=== PATIENT | male | born 1955 | race Caucasian/White ===

== ENCOUNTER 2022-09-26 08:43 | Emergency (ER) | payer OTHER, BC ==
--- OUTSIDE RECORDS SUMMARY | 2022-09-26 08:48 | XMS REPORT | Continuity of Care Document ---
:1955 Author Organization [facility] t Address [address] [facility]. [address] [place] [address] Care Team Providers Name Role Phone Mike MICHEL MD, Santy Primary Care Physician Cricket Attending Clinician Unavailable Finn Attending Clinician Unavailable Madelaine ADLER, Denis Attending Clinician Bianca MARROQUIN, Jose Antonio Beavers Attending Clinician [phone] Nishant ADLER, Mauro Cade Attending Clinician Sowmya Nuno PT Attending Clinician Unavailable Radu TEAGUE, Waqar Coelho Attending Clinician Unavailable Linda Attending Clinician Unavailable José Benoit Attending Clinician Cricket Admitting Clinician Unavailable Finn Admitting Clinician Unavailable Linda Admitting Clinician Unavailable Payers Payer Name Policy Type Policy Number Effective Date Expiration Date S [facility] [place] [id number] 2021 [place] 00:00:00 [place] [id number] 2021 [place] (MEDICARE 00:00:00 SUPPLEMENT) [facility] [id number] PL[place] OF [place] TRANSACT RX (MOVED [id number] 2021 HOLD) 00:00:00 [employer] (HMO) [id number] Problems Condition Condition Condition Status Onset Resolution Last Treating Co mments Source Name Details Category Date Date Treatment Clinician Date Hyperlipid Hyperlipid Problem Active [facility] emia emia 05-24 Family 00:00: Practic 00 e Vitiligo Vitiligo Problem Active [place] 1-31 Family 00:00: Practic 00 e OTHER OTHER Diagnosis Active 2018-07-09 Mem oria INTERVERTE INTERVERTE 4-24 07:54:00 l BRAL DISC BRAL DISC 00:00: Herm michealle DEGENERATI DEGENERATI 00 ON, ON, Active [facility] Erectile Erectile Problem Active [place] dysfunctio Dysfunctio 02-27 Fa vito n n 00:00: Practic 00 e Hypertensi Hypertensi Problem Active V illage ve ve 02-27 Family disorder Disorder 00:00: Practi c 00 e SCREENING SCREENING Diagnosis Active 2012-05-11 Memoria Active 04-12 08:49:00 l 04/12/2012 00:00: Wayne n 00 [place] Hypertensi Hypertens Problem Active 2021-02-05 Memoria on ion Active 03:16:55 l Problem Pella 02/05/2021 Santy Mckeon III SPINAL SPINAL Diagnosis Active 2018-07-09 Me moria STENOSIS, STENOSIS, 07:54:00 l LUMBAR LUMBAR [place] [facility] WITHOUT N WITHOUT N Active [facility] Screening Screening Problem Resolve 2018-07-11 Memoria colonoscop colonoscop d 21:49:56 l y y Bernardino (procedure (procedure ) ) Resolved Problem 07/11/2018 [facility] Screening Screening Problem Resolve 2012-05-13 Memoria colonoscop colonoscop d 09:06:52 l y y Resolved Wayne n Problem 05/13/2012 [facility] Erectile Erectile Problem Active 2021-02-05 Memoria dysfunctio dysfunctio 03:16:55 l n n Active [place] Problem 02/05/2021 Santy Mckeon III Vitiligo Vitiligo Problem Active 2021-02-05 Memoria Active 03:16:55 l Problem Pella 02/05/2021 Santy Mckeon III Allergies, Adverse Reactions, Alerts Allergy Allergy Status Severity Reaction(s) Onset Inactive Treating Comm ents Source Name Type Date Date Clinician Atorvast Atorvast Active Myalgias Yobany iam atin atin 8-06 l Calcium Calcium 00:00: Pella 00 Atorvast Allergy Active Myalgias [place] atin to (muscle Family substanc pain) Practic e e ATORVAST Allergy Active Myalgias [place] ATIN to (muscle Family CALCIUM substanc pain) Practic e e No Known No Known Active Memori a Medicati Medicati l on on Bernardino Toth s s Social History Social Habit Start Date Stop Date Quantity Comments Source Gender identity [facility] History of Social 2022-03-30 2022-03-[address] function 00:00:00 00:00:00 Hospital Tobacco use and 2022-01-12 2022-01-12 Smokeless Worship exposure 00:00:00 00:00:00 tobacco non-user Hospital Sex Ass[birth year] At [birth year] [facility] 00:00:00 00:00:00 Hospital Smoking Status Start Date Stop Date Source Never smoked tobacco [facility] Medications Ordered Filled Start Stop Current Ordering Indication Dosage Frequency Signature Comments Components Source Medication Medication Date Date Medication? Clinician (SIG) Name Name meloxicam 2022- No [id number] Prn pain. [facility] (Mobic) 03-[address] mg tablet 00:00: 05:59 with food Ho spita 00 :00 for 30 l days. meloxicam 2022- No [id number] Prn pain. [facility] (Mobic) 03-[address] mg tablet 00:00: 05:59 with food Ho spita 00 :00 for 30 l days. methocarbam 2022- No [id number] 750mg [id number] Take 1 [facility] oL 03-[id number] (ROBAXIN) 00:00: 05:59 3D (750 [facility] 750 MG 00 :00 total) by l tablet mouth 3 (three) times a day as needed for muscle spasms for up to 10 days. methocarbam 2022- No [id number] 750mg Q.[id number] Take 1 [facility] 03-[id number] (ROBAXIN) 00:00: 05:59 3D (750 mg [facility] 750 MG 00 :00 total) by l tablet mouth 3 (three) times a day as needed for muscle spasms for up to 10 days. Fluzone 2020-0 Yes PHARMACIST Rach helen Quad 11-[address] , 00:00: ED Hospita PF, 60 mcg 00 IMMUNIZATI l (15 mcg x ON 4)/0.5 mL ADMINISTER syringe ED AT TIME OF DISPENSING Fluzone 2020-0 Yes PHARMACIST Rach helen Quad 11-[address] , 00:00: ED Hospita PF, 60 mcg 00 IMMUNIZATI l (15 mcg x ON 4)/0.5 mL ADMINISTER syringe ED AT TIME OF DISPENSING Ibuprofen 2020-0 Yes Santy 1 tablet Me moria 9-12 Young with food l 02:00: or milk as Pella 45 needed Ibuprofen 2020-0 Yes Santy 1 tablet Me moria 9-12 Young with food l 02:00: or milk as Bernardino 45 needed Ibuprofen 2020-0 Yes Santy 1 tablet Me moria 9-12 Young with food l 02:00: or milk as Bernardino 45 needed Ibuprofen 2020-0 Yes Santy 1 tablet Me moria 9-12 Young with food l 02:00: or milk as P[place] 45 needed Ibuprofen 2020-0 Yes Santy 1 tablet Me moria 9-12 Young with food l 02:00: or milk as Bernardino 45 needed Tizanidine 2020-0 Yes Santy 1 tablet M emoria HCl 9-11 Young as needed l 00:00: Tizanidine 2020-0 Yes Santy 1 tablet M emoria HCl 9-11 Young as needed l 00:00: Tizanidine 2020-0 Yes Santy 1 tablet M emoria HCl 9-11 Young as needed l 00:00: Tizanidine 2020-0 Yes Santy 1 tablet M emoria HCl 9-11 Young as needed l 00:00: Tizanidine 2020-0 Yes Santy 1 tablet M emoria HCl 9-11 Young as needed l 00:00: lisinopril lisinopril No lisinopril [place] 20 mg 20 mg 20 mg Family tablet Take tablet Take tablet Practic 1 tablet by 1 tablet by Take 1 e mouth once mouth once tablet by daily daily mouth once daily sildenafil sildenafil No sildenafil [facility] 100 mg 100 mg 100 mg Family tablet TAKE tablet TAKE tablet Practic 1 TABLET BY 1 TABLET BY TAKE 1 e MOUTH 30 MOUTH 30 TABLET BY MINUTES MINUTES MOUTH 30 PRIOR TO PRIOR TO MINUTES SEXUAL SEXUAL PRIOR TO ACTIVITY ACTIVITY SEXUAL ACTIVITY lisinopril lisinopril No lisinopril [facility] 20 mg 20 mg 20 mg Family tablet TAKE tablet TAKE tablet Practic 1 TABLET BY 1 TABLET BY TAKE 1 e MOUTH ONCE MOUTH ONCE TABLET BY DAILY FOR DAILY FOR MOUTH ONCE 90 DAYS 90 DAYS DAILY FOR 90 DAYS sildenafil sildenafil No sildenafil [facility] 100 mg 100 mg 100 mg Family tablet TAKE tablet TAKE tablet Practic 1 TABLET BY 1 TABLET BY TAKE 1 e MOUTH 30 MOUTH 30 TABLET BY MINUTES MINUTES MOUTH 30 PRIOR TO PRIOR TO MINUTES SEXUAL SEXUAL PRIOR TO ACTIVITY ACTIVITY SEXUAL ACTIVITY Immunizations Ordered Immunization Filled Immunization Date Status Commen ts Source Name Name zoster recombinant zoster recombinant 2022-05-23 Completed [facility] 16:21:00 Practice Pneumococcal Pneumococcal 2022-05-23 Completed [facility] conjugate PCV20, conjugate PCV20, 16:21:00 Pr actice polysaccharide [id number] polysaccharide [id number] conjugate, adjuvant, conjugate, adjuvant, PF PF zoster recombinant zoster recombinant 2022-01-26 Completed [facility] 00:00:00 Practice influenza, influenza, 2022-01-26 Completed [facility] unspecified unspecified 00:00:00 Practice formulation formulation COVID-19, mRNA, COVID-19, mRNA, 2021-01-27 Completed [facility] LNP-S, PF, 100 LNP-S, PF, 100 00:00:00 Practi ce mcg/0.5 mL dose mcg/0.5 mL dose (Moderna) (Moderna) COVID-19, mRNA, COVID-19, mRNA, 2021-01-27 Completed [facility] Family LNP-S, PF, 100 LNP-S, PF, 100 00:00:00 Practi ce mcg/0.5 mL dose mcg/0.5 mL dose (Moderna) (Moderna) COVID-19, mRNA, COVID-19, mRNA, 2020-04-15 Completed [facility] Family LNP-S, PF, 100 LNP-S, PF, 100 00:00:00 Practi ce mcg/0.5 mL dose mcg/0.5 mL dose (Moderna) (Moderna) COVID-19, mRNA, COVID-19, mRNA, 2020-04-15 Completed [facility] Family LNP-S, PF, 100 LNP-S, PF, 100 00:00:00 Practi ce mcg/0.5 mL dose mcg/0.5 mL dose (Moderna) (Moderna) influenza, influenza, 2019-11-26 Completed [facility] injectable, injectable, 00:00:00 Practice quadrivalent, quadrivalent, preservative free preservative free influenza, influenza, 2019-11-26 Completed [facility] injectable, injectable, 00:00:00 Practice quadrivalent, quadrivalent, preservative free preservative free Fluzone Quadrivalent 2019-11-26 Completed Yobany rial 00:00:00 [place] Fluzone Quadrivalent 2019-11-26 Completed Yobany rial 00:00:00 [place] Fluzone Quadrivalent 2019-11-26 Completed Yobany rial 00:00:00 [place] Fluzone Quadrivalent 2019-11-26 Completed Yobany rial 00:00:00 [place] Fluzone Quadrivalent 2019-11-26 Completed Yobany rial 00:00:00 [place] influenza, influenza, 2015-11-23 Completed [facility] injectable, injectable, 00:00:00 Practice quadrivalent quadrivalent Tdap Tdap 2015-11-23 Completed [facility] 00:00:00 Practice influenza, influenza, 2015-11-23 Completed [facility] injectable, injectable, 00:00:00 Practice quadrivalent quadrivalent Tdap Tdap 2015-11-23 Completed [facility] 00:00:00 Practice Tdap Tdap 2013-02-27 Completed [facility] 00:00:00 Practice Tdap Tdap 2013-02-27 Completed [facility] 00:00:00 Practice influenza, seasonal, influenza, seasonal, 2011-12-23 Completed [facility] injectable injectable 00:00:00 Practice influenza, seasonal, influenza, seasonal, 2011-12-23 Completed [facility] injectable injectable 00:00:00 Practice Vital Signs Vital Name Observation Time Observation Value Comments Source BP Diastolic 2022-05-23 00:00:00 79 mm[Hg] [facility] Practice Height 2022-05-23 00:00:00 71 [in_i] [facility] BMI (Body Mass 2022-05-23 00:00:00 31.5 kg/m2 [facility] e Family Index) Practice BP Systolic 2022-05-23 00:00:00 135 mm[Hg] [facility] Body Weight 2022-05-23 00:00:00 226 [lb_av] [facility] BP Diastolic 2021-05-18 00:00:00 83 mm[Hg] [facility] Height 2021-05-18 00:00:00 71 [in_i] [facility] BMI (Body Mass 2021-05-18 00:00:00 31.4 kg/m2 [facility] Practice BP Systolic 2021-05-18 00:00:00 145 mm[Hg] [facility] Body Weight 2021-05-18 00:00:00 224.8 [lb_av] [facility] Body height 2022-03-30 21:00:00 182.9 cm [facility] Body weight 2022-03-30 21:00:00 95.255 kg [facility] BMI 2022-03-30 21:00:00 28.48 kg/m2 [facility] Weight 2012-05-11 13:56:00 [facility] Height 2012-05-11 13:56:00 182.88 cm [facility] Procedures Procedure Date / Time Performing Clinician Source Performed XR LUMBAR SPINE COMPLETE 2022-03-30 21:07:20 Denis Burkett [facility] 4+ VW ME ARTHROCENTESIS 2022-01-12 19:30:00 Jose Antonio Valenzuela [facility] ASPIR&/INJ MAJOR JT/BURSA W/O US XR KNEE 4+ VW LEFT 2022-01-12 19:24:00 Jose Antonio Valenzuela [facility] Colonoscopy 2012-05-11 05:00:00 [facility] Colonoscopy 2012-05-11 05:00:00 [facility] Repair of umbilical [facility]<sup>[facility]</sup> LASIK [facility] Repair of umbilical [facility] hernia Teeth operation [facility] <sup>1</sup> Plan of Care Planned Activity Planned Date Details Comments Source Future Scheduled Test 2022-08-27 Screening for [facility] 22:44:31 malignant neoplasm of colon (procedure) [code = 207235888] Future Scheduled Test 2022-08-27 Screening for [facility] 22:44:31 malignant neoplasm of colon (procedure) [code = 621967153] Future Scheduled Test 2022-08-27 Hepatitis C screening [facility] 22:44:31 (procedure) [code = 139401920] Future Scheduled Test 2022-08-27 Screening for [facility] 22:44:31 malignant neoplasm of colon (procedure) [code = 255258308] Future Scheduled Test 2022-08-27 SHINGLES VACCINES (1 [facility] 22:44:31 of 2) [code = SHINGLES VACCINES (1 of 2)] Future Scheduled Test 2022-08-27 COVID-19 VACCINE ([address] [place] [address] 22:44:31 Moderna series) [code = COVID-19 VACCINE (5 - Moderna series)] Future Scheduled Test 2022-08-27 65+ PNEUMOCOCCAL [facility] 22:44:31 VACCINE (1 - PCV) [code = 65+ PNEUMOCOCCAL VACCINE (1 - PCV)] Future Scheduled Test 2022-08-27 INFLUENZA VACCINE [facility] 22:44:31 [code = INFLUENZA VACCINE] Future Scheduled Test 2022-08-27 Screening for [facility] 22:44:31 malignant neoplasm of colon (procedure) [code = 356854665] Future Scheduled Test 2022-08-27 Screening for [facility] 22:44:31 malignant neoplasm of colon (procedure) [code = 168938303] Future Scheduled Test 2022-05-29 Hepatitis C screening [facility] 13:25:51 (procedure) [code = 864659138] Future Scheduled Test 2022-05-29 COLONOSCOPY SCREENING [facility] 13:25:51 [code = COLONOSCOPY SCREENING] Future Scheduled Test 2022-05-29 SHINGLES VACCINES (1 [facility] 13:25:51 of 2) [code = SHINGLES VACCINES (1 of 2)] Future Scheduled Test 2022-05-29 COVID-19 VACCINE ( - [facility] 13:25:51 Booster) [code = COVID-19 VACCINE (5 - Booster)] Future Scheduled Test 2022-05-29 65+ PNEUMOCOCCAL [facility] 13:25:51 VACCINE (1 - PCV) [code = 65+ PNEUMOCOCCAL VACCINE (1 - PCV)] Future Scheduled Test 2022-05-29 INFLUENZA VACCINE [facility] 13:25:51 [code = INFLUENZA VACCINE] Diagnostic Test 2022-05-23 PSA, serum or plasma [facility] Family Pending 00:00:00 [code = PSA, serum or Practi ce plasma] Diagnostic Test 2022-05-23 CMP, serum or plasma Vill age Family Pending 00:00:00 [code = CMP, serum or Practi ce plasma] Diagnostic Test 2022-05-23 CBC w/ auto diff [facility] Family Pending 00:00:00 [code = CBC w/ auto Practice diff] Diagnostic Test 2022-05-23 TSH, serum or plasma Vill age Family Pending 00:00:00 [code = TSH, serum or Practi ce plasma] Diagnostic Test 2022-05-23 lipid panel, serum Villag e Family Pending 00:00:00 [code = lipid panel, Practic e serum] Diagnostic Test 2022-05-23 urinalysis complete, Vill age Family Pending 00:00:00 reflex culture [code Practic e = urinalysis complete, reflex culture] Future Appointment 2022-11-23 Linnea Garcia, [address] Family 07:30:00 Pradeep Haley; [address] [address] Encounters Start End Encounter Admission Attending Care Care Encounter Source Date/Time Date/Time Type Type Clinicians Facility Department ID 2022-05-23 2022-05-23 [facility] [id number] [facility] 00:00:00 00:00:00 0327 Family Practic e 2022-05-23 2022-05-23 Linnea Aragon [facility] [place] - [id number] [facility] 00:00:00 00:00:00 JoseGerry poole MD: [address]ic Pradeep Manning, [address] [place] [phone] , Ph. 2022-05-20 2022-05-20 Outpatient Efrain_Harshal [facility] [id number] [facility] 00:00:00 00:00:00 0324 Family Practic e 2022-05-20 2022-05-20 Outpatient VFP VF [id number] [facility] 00:00:00 00:00:00 0406 Family Practic e 2022-05-20 2022-05-20 Outpatient Kovacs_J VFP [facility] [id number] [facility] 00:00:00 00:00:00 0426 Family Practic e 2022-03-30 2022-03-30 Office Burkett, 1.2.840.1 [id number] [facility] 15:15:00 15:30:[address] Hos[address]134[address]1.[address] 3.430.2.7 Hospit a .3.462960 l .8 2022-03-30 2022-03-30 Office Burkett, 1.2.840.1 [id number] [facility] 15:15:00 15:30:00 Visit Hosun [address]11.1.[address] 3.430.2.7 Hospit a .3.578849 l .8 2022-03-30 2022-03-30 Travel 1.2.840.1 1.2.638.792 [id number] [id number] [facility] 00:00:00 00:00:[address] 3.430.2.7 0.2.7.3.698 Ho spita .3.163840 084.8 l .8 2022-03-30 2022-03-30 Travel 1.2.840.1 1.2.216.846 9455 [id number] [facility] 00:00:00 00:00:[address] 3.430.2.7 0.2.7.3.698 Ho spita .3.310038 084.8 l .8 2022-03-30 2022-03-30 [facility] [id number] [place] 00:00:00 00:00:00 HOSUN [address] 2022-01-26 2022-01-26 Evaluation Jose Antonio Valenzuela 1.2.840.1 [id number] [facility] 11:00:00 12:00:00 Mauro D[address]27.1.[address] Sowmya Nuno 3.430.2.7 Hos ayesha .3.937896 l .8 2022-01-26 2022-01-26 Evaluation Jose Antonio Valenzuela 1.2.840.1 [id number] [facility] 11:00:00 12:00:00 Mauro Dillard [address] Nurys, Sowmya 3.430.2.7 Hos ayesha .3.720698 l .8 2022-01-26 2022-01-26 Travel 1.2.840.1 1.2.507.159 7328 [id number] [facility] 00:00:00 00:00:[address] 3.430.2.7 0.2.7.3.698 Ho spita .3.357389 084.8 l .8 2022-01-26 2022-01-26 Travel 1.2.840.1 1.2.741.668 0344 [id number] [facility] 00:00:00 00:00:[address] 3.430.2.7 0.2.7.3.698 Ho spita .3.965417 084.8 l .8 2022-01-12 2022-01-17 Office Fertak, 1.2.840.1 [id number] [facility] 13:30:00 16:17:59 Visit Jose Antonio 63918.1.[address] [place] 3.430.2.7 Hospit a .3.194269 l .8 2022-01-12 2022-01-17 Office Fertak, 1.2.840.1 [id number] [facility] 13:30:00 16:17:59 Visit Jose Antonio 48385.1.[address] [place] 3.430.2.7 Hospit a .3.347606 l .8 2022-01-12 2022-01-12 Outpatient BIANCA, [facility] [id number] [place] 00:00:00 00:00:00 JOSE ANTONIO [address] 2022-01-11 2022-01-11 Orders Lovelace, 1.2.840.1 [id number] [facility] 00:00:00 00:00:00 Only Daygonzalez Coelho 93486.1.[address] 3.430.2.7 Hospit a .3.354914 l .8 2022-01-11 2022-01-11 Travel 1.2.840.1 1.2.587.186 7155 [id number] Method[facility] 00:00:00 00:00:[address] 3.430.2.7 0.2.7.3.698 Ho spita .3.160879 084.8 l .8 2022-01-11 2022-01-11 Orders Lovelace, 1.2.840.1 [id number] Methodi 00:00:00 00:00:00 Only Dayaichana A 70542.1.[address] 3.430.2.7 Hospit a .3.361062 l .8 2022-01-11 2022-01-11 Travel 1.2.840.1 1.2.777.221 1495 [id number] Methodi 00:00:00 00:00:[address] 3.430.2.7 0.2.7.3.698 Ho spita .3.537404 084.8 l .8 2021-10-13 2021-10-13 Outpatient Davis_M VFP VFP [id number] [facility] 00:00:00 00:00:00 0817 Family Practic e 2021-08-16 2021-08-16 Outpatient Davis_M VFP VFP [id number] 022 [facility] 12:54:00 12:54:00 0620 Family Practic e 2021-06-16 2021-06-16 Outpatient Young_D VFP VFP [id number] 022 [facility] 03:14:00 03:14:00 0420 Family Practic e 2021-06-04 2021-06-04 Outpatient Young_D VFP VFP [id number] 022 [facility] 03:00:00 03:00:00 0408 Family Practic e 2021-06-03 2021-06-03 Outpatient Young_D VFP VFP [id number] [facility] 06:34:00 06:34:00 0407 Family Practic e 2021-06-02 2021-06-02 Outpatient Young_D VFP VFP [id number] 022 [facility] 12:12:00 12:12:00 0406 Family Practic e 2021-06-02 2021-06-02 Linnea Aragon VFP [place] - [id number] [facility] 00:00:00 00:00:00 Gerry Garcia Family MD: [address] Fernández VM_HOU_Heig e , Malik. [address] [phone] , Ph. 2021-05-27 2021-05-27 Outpatient Young_D VFP VFP [id number] 022 [facility] 04:57:00 04:57:00 0331 Family Practic e 2021-05-27 2021-05-27 Linnea Aragon VFP [place] - [id number] [facility] 00:00:00 00:00:00 Gerry Garcia MD: [address] Fernández VM_HOU_Hebeverley e , Malik. [address] [phone] , Ph. 2021-05-19 2021-05-19 Outpatient Young_D VFP VFP [id number] [facility] 03:56:00 03:56:00 0323 Family Practic e 2021-05-18 2021-05-18 Outpatient Young_D VFP VFP [id number] [facility] 02:02:00 02:02:00 0322 Family Practic e 2021-05-18 2021-05-18 Linnea Aragon VFP [place] - [id number] [facility] 00:00:00 00:00:00 Gerry Garcia MD: [address] Fernández VM_HOU_Heig e , Malik. [address] [phone] , Ph. 2021-03-29 2021-03-29 Outpatient Young_D VFP VFP [id number] 022 [facility] 08:29:00 08:29:00 0131 Family Practic e 2021-03-29 2021-03-29 Outpatient Young_D VFP VFP [id number] [facility] 08:29:00 08:29:00 0317 Family Practic e 2019-11-27 2019-11-27 Outpatient MADELAINE [facility] [id number] [place] 00:00:00 00:00:00 HOSUN [address] 2019-11-27 2019-11-27 Outpatient MADELAINE [facility] [id number] [place] 00:00:00 00:00:[address] HOSUN [address] 2019-11-26 2019-11-26 Outpatient Santy Madera C [id number] [facility] 16:21:00 16:21:00 Young III Young III wendy Greene MD, MD 2019 2019 Outpatient Santy Madera C [id number] [facility]Clinic 10:34:00 10:34:00 Young III Young III wendy Greene MD, MD 2019-11-08 2019-11-08 Outpatient Santy Madera C [id number] [facility]inic 14:12:00 14:12:00 Young III Young III wendy Greene MD, MD 2019-11-08 2019-11-08 Outpatient Santy Madera C [id number] [facility]inic 14:04:00 14:04:00 Young III Young III wendy Greene MD, MD 2019-10-03 2019-10-03 Outpatient Santy Madera C [id number] [facility]inic 14:16:00 14:16:00 Young III Young III wendy Greene MD, MD 2018-07-09 2018-07-10 Outpatient nullFlavo [facility] 3747 [id number] Memoria 12:45:00 04:59:00 r Bernardino 01 l [facility] 2018-07-09 2018-07-10 Outpatient nullFlavo [facility] [id number] Memoria 12:45:00 04:59:00 r Bernardino 01 l [facility] 2018-07-09 2018-07-09 Outpatient [facility] [id number] 07:45:00 23:59:00 José 01 Basim 2018-07-09 2018-07-09 Outpatient [facility] 7501 [facility] 07:45:00 07:45:00 2012-05-11 2012-05-11 RIVERA nullFlavo [facility] [id number] Memoria 08:36:00 11:41:00 r Rayo 00 marichuy Lebron 2012-05-11 2012-05-11 RIVERA nullFlavo [facility] [id number] Memoria 08:36:00 11:41:00 [facility] 00 l Pella Results Test Description Test Time Test Comments Results Result Comments Source urinalysis, microscopic 2022-05-24 07:11:00 Test Item Value Reference Range Interpretation Comme nts WBC (test code = WBC) none seen 0-5 RBC (test code = RBC) none seen 0-2 epithelial cells (non renal) (test code = epithelial none seen 0 -10 cells (non renal)) epithelial cells (renal) (test code = epithelial cells comment (renal)) casts (test code = casts) none seen none seen cast type (test code = cast type) comment crystals (test code = crystals) comment crystal type (test code = crystal type) comment mucus threads (test code = mucus threads) comment bacteria (test code = bacteria) none seen none seen/few yeast (test code = yeast) comment trichomonas (test code = trichomonas) comment comment (test code = comment) comment [facility] - Urine 2022-05-24 00:00:00 Test Item Value Reference Range Interpretation Comments specific gravity (test code = 1.010 1.005-1.030 specific gravity) pH (test code = pH) 7.0 5.0-7.5 urine-color (test code = yellow yellow urine-color) appearance (test code = appearance) clear clear WBC esterase (test code = WBC negative negative esterase) protein (test code = protein) negative negative/trace glucose (test code = glucose) negative negative ketones (test code = ketones) negative negative occult blood (test code = occult negative negative blood) bilirubin (test code = bilirubin) negative negative urobilinogen,semi-qn (test code = 0.2 mg/dL 0.2-1.0 urobilinogen,semi-qn) nitrite, urine (test code = negative negative nitrite, urine) microscopic examination (test code = microscopic examination) urinalysis reflex (test code = comment urinalysis reflex) [facility] W Auto Differential panel - [id number] 00:00:00 Test Item Value Reference Range Interpretation Comments WBC (test code = WBC) 4.32 x10*3/?L 4.00-11.00 RBC (test code = RBC) 4.51 10*12/L 4.63-6.08 L hemoglobin (test code = 14.30 g/dL 13.70-17.50 hemoglobin) hematocrit (test code = 44.3 % 40.1-51.0 hematocrit) MCV (test code = MCV) 98.2 fL 80.0-100.0 MCH (test code = MCH) 31.7 pg 25.7-32.2 MCHC (test code = MCHC) 32.3 g/dL 32.3-36.5 RDW-SD (test code = RDW-SD) 44.7 fL 35.1-43.9 H platelet count (test code = 179.0 k/uL 150.0-400.0 platelet count) MPV (test code = MPV) 9.7 fL 7.5-11.5 neut% (test code = neut%) 64.9 % 34.0-67.9 lymph% (test code = lymph%) 23.8 % 21.8-53.1 mon% (test code = mon%) 9.7 % 5.3-12.2 eos% (test code = eos%) 0.7 % 0.8-7.0 L baso% (test code = baso%) 0.7 % 0.2-1.2 neut# (test code = neut#) 2.8 x10*3/?L 1.8-5.4 lymph# (test code = lymph#) 1.0 x10*3/?L 1.3-3.6 L mon# (test code = mon#) 0.4 x10*3/?L 0.3-0.8 eos# (test code = eos#) 0.03 x10*3/?L 0.04-0.54 L baso# (test code = baso#) 0.03 x10*3/?L 0.01-0.08 [facility] - Serum or [id number] 00:00:00 Test Item Value Reference Range Interpretation Comments HDL (test code = HDL) 63 mg/dL triglyceride (test code = 91 mg/dL <150 triglyceride) VLDL (calculated) (test code = VLDL 18 mg/dL (calculated)) cholesterol/HDL ratio (test code = 3.8 mg/dL cholesterol/HDL ratio) non-HDL cholesterol (calculated) 174 mg/dL <160 H (test code = non-HDL cholesterol (calculated)) cholesterol (test code = 237 mg/dL <200 H cholesterol) Cholesterol in LDL [Mass/volume] in 156 mg/dL <130 H Serum or Plasma (test code = 2089-1) [facility] or [id number] 00:00:00 Test Item Value Reference Range Interpretation Comments PSA, total (test code = PSA, 1.49 NG/mL <4.00 total) [facility] [Units/volume] in Serum or [id number] 00:00:00 Test Item Value Reference Range Interpretation Comments TSH (test code = TSH) 2.011 uIU/mL 0.350-4.940 [facility] 1999 panel - Serum or Plasma 2022-05-23 00:00:00 Test Item Value Reference Range Interpretation Comments ALT (test code = ALT) 19 U/L 0-55 AST (test code = AST) 18 U/L 5-34 BUN (test code = BUN) 17.3 mg/dL 8.4-25.0 alk phos (test code = alk phos) 49 unit/L 40-150 glucose (test code = glucose) 96 mg/dL 70-99 albumin (test code = albumin) 4.1 g/dL 3.4-5.1 creatinine (test code = 0.94 mg/dL 0.72-1.25 creatinine) eGFR (test code = eGFR) >60 total bilirubin (test code = 1.4 mg/dL 0.2-1.2 H total bilirubin) sodium (test code = sodium) 142 mEq/L 135-145 potassium (test code = potassium) 4.8 mEq/L 3.5-5.3 chloride (test code = chloride) 106 mmol/L 98-110 total protein (test code = total 6.9 g/dL 6.1-8.2 protein) calcium (test code = calcium) 9.3 mg/dL 8.8-10.2 CO2 (test code = CO2) 28.9 mmol/L 20.0-32.0 anion gap (test code = anion gap) 7 calc [facility] panel - Serum or Plasma 2021-05-28 00:00:00 Test Item Value Reference Range Interpretation Comments ALT (test code = ALT) 23 U/L 0-55 AST (test code = AST) 19 U/L 5-34 BUN (test code = BUN) 20.0 mg/dL 8.4-25.0 alk phos (test code = alk phos) 59 unit/L 40-150 glucose (test code = glucose) 96 mg/dL 70-99 albumin (test code = albumin) 4.2 g/dL 3.4-5.1 creatinine (test code = 0.88 mg/dL 0.72-1.25 creatinine) eGFR non- (test >60 code = eGFR non-) total bilirubin (test code = 1.7 mg/dL 0.2-1.2 H total bilirubin) eGFR - (test >60 code = eGFR - ) sodium (test code = sodium) 141 mEq/L 135-145 potassium (test code = potassium) 4.5 mEq/L 3.5-5.3 chloride (test code = chloride) 104 mmol/L 98-110 total protein (test code = total 7.0 g/dL 6.1-8.2 protein) calcium (test code = calcium) 9.1 mg/dL 8.8-10.2 CO2 (test code = CO2) 27.6 mmol/L 20.0-32.0 anion gap (test code = anion gap) 9 calc [facility] panel - Serum or [id number] 00:00:00 Test Item Value Reference Range Interpretation Comments HDL (test code = HDL) 55 mg/dL triglyceride (test code = 106 mg/dL <150 triglyceride) VLDL (calculated) (test code = VLDL 21 mg/dL (calculated)) cholesterol/HDL ratio (test code = 4.1 mg/dL cholesterol/HDL ratio) non-HDL cholesterol (calculated) 171 mg/dL <160 H (test code = non-HDL cholesterol (calculated)) cholesterol (test code = 226 mg/dL <200 H cholesterol) Cholesterol in LDL [Mass/volume] in 150 mg/dL <130 H Serum or Plasma (test code = 2089-1) [facility] [Units/volume] in Serum or [id number] 00:00:00 Test Item Value Reference Range Interpretation Comments TSH (test code = TSH) 2.383 uIU/mL 0.350-4.940 [facility], serum or [id number] 00:00:00 Test Item Value Reference Range Interpretation Comments PSA, total (test code = PSA, 1.47 NG/mL <4.00 total) [facility] [Mass/volume] in Serum or [id number] 00:00:00 Test Item Value Reference Range Interpretation Comments testosterone, total (test code = 782.81 NG/dL 220.91-715.81 H testosterone, total) [facility] Auto Differential panel - [id number] 00:00:00 Test Item Value Reference Range Interpretation Comments WBC (test code = WBC) 4.49 x10*3/?L 4.00-11.00 RBC (test code = RBC) 4.75 10*12/L 4.63-6.08 hemoglobin (test code = 14.90 g/dL 13.70-17.50 hemoglobin) hematocrit (test code = 46.6 % 40.1-51.0 hematocrit) MCV (test code = MCV) 98.1 fL 80.0-100.0 MCH (test code = MCH) 31.4 pg 25.7-32.2 MCHC (test code = MCHC) 32.0 g/dL 32.3-36.5 L RDW-SD (test code = RDW-SD) 43.8 fL 35.1-43.9 platelet count (test code = 200.0 k/uL 150.0-400.0 platelet count) MPV (test code = MPV) 9.9 fL 7.5-11.5 neut% (test code = neut%) 61.9 % 34.0-67.9 lymph% (test code = lymph%) 26.3 % 21.8-53.1 mon% (test code = mon%) 10.0 % 5.3-12.2 eos% (test code = eos%) 0.7 % 0.8-7.0 L baso% (test code = baso%) 0.7 % 0.2-1.2 neut# (test code = neut#) 2.8 x10*3/?L 1.8-5.4 lymph# (test code = lymph#) 1.2 x10*3/?L 1.3-3.6 L mon# (test code = mon#) 0.5 x10*3/?L 0.3-0.8 eos# (test code = eos#) 0.03 x10*3/?L 0.04-0.54 L baso# (test code = baso#) 0.03 x10*3/?L 0.01-0.08 [facility] A1c/Hemoglobin.total in [id number] 00:00:00 Test Item Value Reference Range Interpretation Comments Hemoglobin A1c/Hemoglobin.total in 5.5 % 1.0-5.7 Blood (test code = 4548-4) average blood glucose (calculation) 111 mg/dL (test code = average blood glucose (calculation)) [facility] Notes Date/Time Note Provider Source 2018-07-09 07:52:00-00:00 Patient Name: GERSON GOMEZ [facility] : 1955; Age: 62 years Male MR: [id number] Study: Spine lumbar wo contrast MRI 07/09/2018 7: 52 AM CDT Clinical Indication: M51.36 Other intervertebral disc degeneration, lumbar region, - M51.36 Other intervertebral disc degeneration, lumbar region, M48.061 Spinal stenosis, lumbar region without neurogenic claudication. COMPARISON: None TECHNIQUE: Multiplanar T1, T 2, STIR weighted noncontrast MRI of the lumbar spine is performed on the 1.5 Lulu magnet. FINDINGS: ALIGNMENT AND GENERAL ASSESS MENT: Vertebral body heights are maintained. There is no acute compression fracture evident. There is a Schmorl's node along the inferior endplate of L4 with surroun ding edema. Question acute o r recent Schmorl's node. There are mild disc degenerative changes at L2-L3, L3-L4 L4-L5 and L5-S1. The paraspinous soft tissues appear unremarkable. The conus termin ates at L1. Bone marrow signal changes are unrem arkable for age. DISC SPACES: T12-L1: The disc is normal. There is no central canal stenosis. There is no foraminal stenosis. The facet joints are normal. L1-L2: The disc is normal. T here is no central canal stenosis. There is no foraminal stenosis. The facet joints are normal. L2-L3: Mild diffuse disc bul ge. No spinal canal stenosis. Mild bilateral foraminal narrowing. The facet joints are unremarkable. L3-L4: Mild disc desiccation without significant disc bulge or protrusion. No spinal canal stenosis. Mild bilateral foraminal narrowing. Facet joints are unremarkable. L4-L5: Mild posterior disc b ulge. No spinal canal stenosis. Mild bilateral foraminal narrowing. Facet joints are unremarkable. L5-S1: Mild posterior disc b ulge with central annular fissure. No spinal canal stenosis. Mild bilateral foraminal narrowing. Facet joints are unremarkable. IMPRESSION: 1. No spinal canal stenosis. 2. Mild bilateral foraminal narrowing spanning L 2-L3 through L5-S1. 3. Acute or recent Schmorl's node along the inferior endplate of L4. Correlate for point tenderness. SL: DONITA
[2022-09-26] MEDS ORDERED: LIDOCAINE 1% MPF 5 ML VIAL ONE (09:01)
--- NOTE | 2022-09-26 09:01 | ER ---
Nurse's Notes [facility] Name: Judd Vega Age: 66 yrs Sex: Male : 1955 Arrival Date: 09/26/2022 Time: 08:43 Bed 15 Private MD: Diagnosis: Puncture wound with foreign body of left forearm, initial encounter Presentation: 09/26 08:56 Chief complaint: Patient states: he was fishing and got a hook in his left forearm. ko1 Coronavirus screen: At this time, the client does not indicate any symptoms associated with coronavirus-19. Ebola Screen: No symptoms or risks identified at this time. Initial Sepsis Screen: Does the patient meet any 2 criteria? No. Patient's initial sepsis screen is negative. Does the patient have a suspected source of infection? No. Patient's initial sepsis screen is negative. Risk Assessment: Do you want to hurt yourself or someone else? Patient reports no desire to harm self or others. Onset of symptoms was September 26, 2022. 08:56 Method Of Arrival: Ambulatory ko1 08:56 Acuity: IRIS 4 ko1 Triage Assessment: 09:05 General: Appears in no apparent distress. comfortable, Behavior is calm, cooperative, ko1 appropriate for age. Pain: Complains of pain in dorsal aspect of left forearm. EENT: No deficits noted. Neuro: No deficits noted. Cardiovascular: No deficits noted. Respiratory: No deficits noted. GI: No deficits noted. : No deficits noted. Derm: No deficits noted. Musculoskeletal: No deficits noted. Injury Description: Foreign body is located dorsal aspect of left forearm is fish hook. Historical: - Allergies: 09:05 No Known Allergies; ko1 - Immunization history:: Adult Immunizations unknown. - Social history:: Smoking status: Patient denies any tobacco usage or history of. Screenin:07 [facility] ED Fall Risk Assessment (Adult) History of falling in the last 3 months, ko1 including since admission No falls in past 3 months (0 pts) Confusion or Disorientation No (0 pts) Intoxicated or Sedated No (0 pts) Impaired Gait No (0 pts) Mobility Assist Device Used No (0 pt) Altered Elimination No (0 pt) Score/Fall Risk Level 0 - 2 = Low Risk Oriented to surroundings, Maintained a safe environment, Educated pt \T\ family on fall prevention, incl call for assistance when getting out of bed, Assessed \T\ reinforced patient's understanding of fall precautions. Abuse screen: Denies threats or abuse. Denies injuries from another. Nutritional screening: No deficits noted. Tuberculosis screening: No symptoms or risk factors identified. Assessment: 09:07 Reassessment: see triage. ko1 Vital Signs: 09:05 BP 134 / 86; Pulse 74; Resp 16; Temp 98; Pulse Ox 99% ; ko1 ED Course: 08:45 Patient arrived in ED. kb 08:45 Marlen Stout FNP-C is PHCP. kb 08:45 Rodolfo Victor MD is Attending Physician. kb 08:50 Chio Beck, HO is Primary Nurse. ko1 08:50 Keyur Gilbert MD is Attending Physician. rt 08:50 Arm band placed on right wrist. Patient placed in an exam room, on a stretcher, Patient ko1 notified of wait time. 08:57 Triage completed. ko1 09:07 Patient has correct armband on for positive identification. Bed in low position. Call ko1 light in reach. Provided Education on: tetanus injection. 09:07 Assist provider with foreign body removal of a fish hook from left arm using hemostats, ko1 Set up for procedure. Performed by Marlen JETT Dressed with bandaid Patient tolerated well. Patient did not have IV access during this emergency room visit. 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 ko1 Exp: 03/16/2023. Lot #: [id number]. } Route: IM; Site: left deltoid; Medication: 09:07 Vaccine Information Statement (VIS) provided today. Questions and/or concerns ko1 addressed. VIS edition date: September 26, 2022. Outcome: 09:00 Discharge ordered by . kb 09:07 Discharged to home ambulatory. ko1 09:07 Condition: good 09:07 Discharge instructions given to patient, Instructed on discharge instructions, follow up and referral plans. medication usage, wound care, Demonstrated understanding of instructions, follow-up care, medications, wound care, Prescriptions given X 1. 09:09 Patient left the ED. ko1 Signatures: Marlen Stout FNP-C FNP-Chio Pascual RN RN ko1 Keyur Gilbert MD MD rt
--- NOTE | 2022-09-26 09:01 | EDPHYS ---
Physician Documentation [facility] Name: Judd Vega Age: 66 yrs Sex: Male : 1955 Arrival Date: 09/26/2022 Time: 08:43 Bed 15 Private MD: ED Physician Keyur Gilbert HPI: 09/26 08:46 This 66 yrs old Male presents to ER via Unassigned with complaints of fishhook in left kb FA. 08:46 The patient or guardian reports the patient has a suspected foreign body, of the left kb FA. The reported likely foreign body is a fishhook. Onset: The symptoms/episode began/occurred 30 minute(s) ago. Current symptoms: foreign body sensation. Treatment Prior to Arrival: none. The patient has not experienced similar symptoms in the past. The patient has not recently seen a physician. Historical: - Allergies: 09:05 No Known Allergies; ko1 - Immunization history:: Adult Immunizations unknown. - Social history:: Smoking status: Patient denies any tobacco usage or history of. ROS: 08:46 Constitutional: Negative for fever, chills, and weight loss. kb 08:46 Skin: Positive for puncture, of the dorsal aspect of left forearm, foreign body. 08:46 All other systems are negative. Exam: 08:46 Constitutional: This is a well developed, well nourished patient who is awake, alert, kb and in no acute distress. Head/Face: Normocephalic, atraumatic. ENT: Moist Mucous membranes Cardiovascular: Regular rate and rhythm with a normal S1 and S2. No gallops, murmurs, or rubs. No pulse deficits. Respiratory: Respirations even and unlabored. No increased work of breathing. Talking in full sentences MS/ Extremity: Pulses equal, no cyanosis. Neurovascular intact. Full, normal range of motion. Neuro: Awake and alert, GCS 15, oriented to person, place, time, and situation. Moves all extremities. Normal gait. 08:46 Skin: injury, puncture(s), that are superficial, of the dorsal aspect of left forearm, with fishhook . Vital Signs: 09:05 BP 134 / 86; Pulse 74; Resp 16; Temp 98; Pulse Ox 99% ; ko1 Procedures: 08:59 Foreign Body Removal: a fishhook, from the left dorsal aspect of left forearm, by 3ml kb of 1% lidocaine injected to site, barbs of both hooks pushed through skin, barbs cut off and hook pulled back out. The patient tolerated the removal well. MDM: 08:46 Patient medically screened. kb 08:46 Data reviewed: vital signs, nurses notes. Counseling: I had a detailed discussion with kb the patient and/or guardian regarding: the historical points, exam findings, and any diagnostic results supporting the discharge/admit diagnosis, the need for outpatient follow up, a family practitioner, to return to the emergency department if symptoms worsen or persist or if there are any questions or concerns that arise at home. 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 ko1 Exp: 03/16/2023. Lot #: [id number]. } Route: IM; Site: left deltoid; Disposition: 09:59 Co-signature as Attending Physician, Keyur Gilbert MD I reviewed the patient's care rt provided by the Advanced Practice Provider and agree with the diagnosis and treatment plan. Disposition Summary: 09/26/22 09:00 Discharge Ordered Location: Home kb Condition: Stable kb Diagnosis - Puncture wound with foreign body of left forearm, initial encounter kb Followup: kb - With: Emergency Department - When: As needed - Reason: Worsening of condition Followup: kb - With: Private Physician - When: 2 - 3 days - Reason: Recheck today's complaints, Continuance of care, Re-evaluation by your physician Discharge Instructions: - Discharge Summary Sheet kb - Puncture Wound, [id number] kb - [place] Removal kb Forms: - Medication Reconciliation Form kb - Thank You Letter kb - Antibiotic Education kb - Prescription Opioid Use kb - Patient Portal Instructions kb Prescriptions: - Doxycycline Hyclate 100 mg Oral Tablet - take 1 tablet by ORAL route every 12 hours; 20 tablet; Refills: 0, Product kb Selection Permitted Signatures: Marlen Stout, Chio Villela RN RN ko1 Keyur Gilbert MD MD rt
[2022-09-26] MEDS ORDERED: TDAP (DIPHTH,PERTUSS(ACELL),TET VAC) 0.5 ML VIAL IMVAC ONE (09:02)
[2022-09-26 09:40] VITALS: BP 134/86; TEMP 98; O2SAT 99
== END 2022-09-26 09:09 | disposition home or self-care (01) ==
LOC: ER 08:43
DX: S51.842A Puncture wound with foreign body of left forearm, initial encounter (principal); Z23 Encounter for immunization
CPT/HCPCS: 90471; 99284; J2001